=== PATIENT | female | born 1950 | race Caucasian/White ===

== ENCOUNTER 2018-05-17 06:16 | Day surgery (SDC) | payer OTHER ==
[2018-05-17] MEDS ORDERED: MIDAZOLAM 1 MG/ML 2 ML INJ ×2 (08:58)
[2018-05-17] MEDS ORDERED: FENTAnyl 50 MCG/ML VIAL (08:58)
== END 2018-05-17 14:59 | disposition home or self-care (01) ==
LOC: GIL 06:16
DX: Z12.11 Encounter for screening for malignant neoplasm of colon (principal); D17.5 Benign lipomatous neoplasm of intra-abdominal organs; K21.9 Gastro-esophageal reflux disease without esophagitis; K44.9 Diaphragmatic hernia without obstruction or gangrene; K29.70 Gastritis, unspecified, without bleeding; K57.90 Diverticulosis of intestine, part unspecified, without perforation or abscess without bleeding; K64.8 Other hemorrhoids; I10 Essential (primary) hypertension
CPT/HCPCS: 43239; 88305; 88312